=== PATIENT | male | born 1955 | race Caucasian/White ===

== ENCOUNTER 2017-10-23 14:52 | Emergency (ER) | payer OTHER ==
[~2017-10-23] VITALS: Ht 172.7 cm; Wt 98.9 kg
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
--- NOTE | 2017-10-23 15:10 | NUR ---
DR MULTANI AT BEDSIDE FOR EVAL.
--- NOTE | 2017-10-23 16:33 | NUR ---
Patient discharged to home in stable condition. Written and verbal after care instructions given. Patient verbalizes understanding of instruction.
[2017-10-23 16:34] VITALS: BP 130/68
== END 2017-10-23 16:36 | disposition home or self-care (01) ==
LOC: ER 14:54
DX: S20.212A Contusion of left front wall of thorax, initial encounter (principal); S20.211A Contusion of right front wall of thorax, initial encounter; F17.200 Nicotine dependence, unspecified, uncomplicated; V49.49XA Driver injured in collision with other motor vehicles in traffic accident, initial encounter; Y93.89 Activity, other specified; Y92.413 State road as the place of occurrence of the external cause; Y99.8 Other external cause status
CPT/HCPCS: 71045-TC; A4606; Z7610

== ENCOUNTER 2017-10-31 21:34 | Emergency (ER) | payer OTHER ==
[~2017-10-31] VITALS: Ht 172.7 cm; Wt 88.9 kg
[2017-10-31 22:13] VITALS: BP 151/91
== END 2017-10-31 23:31 | disposition home or self-care (01) ==
LOC: ER 21:36
DX: J06.9 Acute upper respiratory infection, unspecified (principal); F17.200 Nicotine dependence, unspecified, uncomplicated
CPT/HCPCS: A4606; Z7610

== ENCOUNTER 2018-11-25 01:23 | Inpatient (IN) | payer OTHER ==
[~2018-11-25] VITALS: Ht 172.7 cm; Wt 95.7 kg
--- NOTE | 2018-11-25 01:43 | NUR ---
[id number] FROM HOME C/O CP 9/10 MIDSTERNAL NONRADIATING WITH SOB AT 0030 WHILE WALKING OUTSIDE FOR FRESH AIR. PER EMS, 1 NITRO AND 162 ASA GIVEN TECHNOLOGY ADMINISTRATOR. PT DENIES SOB, CP, N/V AT TIME OF ARRIVAL STATING PAIN LEVEL 0/10. PT IS AAOX4. SKIN WNL. NO S/S OF ACUTE DISTRES NOTED. RR EVEN AND UNLABORED. PT PLACED ON TANK CAR REPAIRER AND POX. NSR RYTHM NOTED ON TANK CAR REPAIRER WITH PVC'S. PT SAFETY AND COMFORT MEASURES IN PLACE. MD BEDSIDE FOR EVAL. SIGNIFICANT OTHER BEDSIDE.
[2018-11-25 01:54] LABS: BASOPHILS # (AUTO) 0.1 /CMM (0.0-0.2); EOSINOPHILS % (AUTO) 2.5 % (0.0-6.0); HEMATOCRIT 44 % (39-51); HEMOGLOBIN 14.7 g/dL (13.5-17.5); LYMPHOCYTES # (AUTO) 4.2 /CMM (0.8-4.8); LYMPHOCYTES % (AUTO) 36.6 % (20.0-44.0); MEAN CORPUSCULAR HGB CONC 33 g/dl (31.0-36.0); MEAN CORPUSCULAR VOLUME 91 fL (80-96); MONOCYTES # (AUTO) 1.1 /CMM (0.1-1.30); MONOCYTES % (AUTO) 9.3 % (2.0-12.0); NEUTROPHILS # (AUTO) 5.8 /CMM (1.8-8.9); NEUTROPHILS % (AUTO) 50.6 % (43.0-81.0); PLATELET COUNT (AUTO) 346 /CMM (150-450); RED BLOOD CELL COUNT(AUTO) 4.85 MIL/uL (4.5-6.0); WHITE BLOOD COUNT (AUTO) 11.5 K/uL (4.3-11.0)
[2018-11-25 02:03] LABS: CALCIUM, SERUM 9.1 mg/dL (8.5-10.1); CARBON DIOXIDE 22 mmol/L (21-32); CHLORIDE 107 mmol/L (98-107); CREATININE 1.2 mg/dL (0.6-1.3); GLUCOSE 154 mg/dL (74-106); POTASSIUM 3.7 mmol/L (3.5-5.1); SODIUM SERUM 145 mmol/L (136-145); UREA NITROGEN, BLOOD 22 mg/dL (7-18)
--- NOTE | 2018-11-25 02:10 | NUR ---
PT RESTING COMFORTABLY IN BED. VITAL SIGNS STABLE. WILL CONTINUE TO MONITOR
[2018-11-25 02:16] LABS: ALANINE AMINOTRANSFERASE 46 U/L (12-78); ALBUMIN 3.5 g/dL (3.4-5.0); ALKALINE PHOSPHATASE 94 U/L (46-116); ASPARTATE AMINOTRANSFERASE 18 U/L (15-37); B-TYPE NATRIURETIC PEPTIDE 72 PG/ML (0-125); BILIRUBIN,DIRECT 0.1 mg/dL (0.0-0.2); BILIRUBIN,TOTAL 0.2 mg/dL (0.2-1.0); TOTAL PROTEIN, SERUM 7.3 g/dL (6.4-8.2)
--- NOTE | 2018-11-25 03:31 | NUR ---
GAVE REPORT TO BRYAN ANDREW FOR BETO
[2018-11-25] MEDS ORDERED: Z GUARD REMEDY 2 OZ OINT TP PRN (04:30)
[2018-11-25] MEDS ORDERED: ASPIRIN 81 MG TAB.CHEW PO ONE (04:30)
[2018-11-25] MEDS ORDERED: MAG HYDROX/AL HYDROX/SIMETH 30 ML UDC PO PRN (04:30)
[2018-11-25] MEDS ORDERED: MAGNESIUM HYDROXIDE 30 ML UDC PO PRN (04:30)
[2018-11-25] MEDS ORDERED: ZOLPIDEM TARTRATE 5 MG TABLET PO PRN (04:30)
[2018-11-25] MEDS ORDERED: ACETAMINOPHEN 325 MG TABLET PO PRN (04:30)
[2018-11-25] MEDS ORDERED: ONDANSETRON HCL/PF 4 MG/2 ML VIAL IVP PRN (04:30)
[2018-11-25] MEDS ORDERED: HYDROCODONE/APAP 5/325MG 1 EACH TABLET PO PRN (04:30)
[2018-11-25] MEDS ORDERED: ASPIRIN 81 MG TAB.CHEW ONE (04:39)
[2018-11-25 04:45] VITALS: BP 131/82
--- NOTE | 2018-11-25 04:49 | NUR ---
APPLICATION OPERATIONS ENGINEER NOTES RECEIVED PATIENT VIA GURNEY FROM ER IN STABLE CONDITION. NO DISTRESS NOTED. PATIENT A/O X4. NO C/O CHEST PAIN OR DISCOMFORT. VITALS WNL. PERIPHERAL LINE IN RAC #18 GAUGE INTACT AND PATENT. ENCOURAGED USE OF CALL LIGHT FOR ASSISTANCE AND VERBALIZED GOOD UNDERSTANDING. ROOM FREE OF CLUTTER AND BELONGINGS KPET NEAR BEDSIDE. WILL CONTINUE TO MONITOR.
--- NOTE | 2018-11-25 04:51 | NUR ---
PT TRANSFERRED PER [facility] PROTOC[facility]
[2018-11-25] MEDS: IV NS 0.9% 1,000 ML IV SCH (05:06)
--- NOTE | 2018-11-25 06:29 | NUR ---
PRODUCT TESTER FIBERGLASS NOTES PATIENT ASLEEP IN BED WITH NO DISTRESS NOTED. PERIPHERAL LINE INTACT AND PATENT. NO C/O PAIN OR DISCOMFORT. BED IN LOW LOCK SETTING. ROOM FREE OF CLUTTER AND ALL BELONGINGS KEPT NEAR BEDSIDE. WILL ENDORSE TO ONCOMING SHIFT.
--- NOTE | 2018-11-25 07:30 | NUR ---
PT RECEIVED RESTING COMFORTABLY IN BED WITH EYES CLOSED. NO S/S/ OR C/O PAIN OR DISTRESS NOTED. SIDE RAILS UP X2, CALL LIGHT LEFT WITHIN REACH. WILL CONTINUE PLAN OF CARE.
[2018-11-25 08:06] VITALS: BP 143/66
[2018-11-25] MEDS ORDERED: ALBU18HF2 INH (10:35)
[2018-11-25] MEDS: METOPROLOL TARTRATE 25 MG TABLET PO SCH ×2 (13:49→22:37)
[2018-11-25] MEDS: ENOXAPARIN SODIUM 100 MG/ML DISP.SYRIN SQ SCH (13:54)
[2018-11-25 16:00] VITALS: BP 132/87
--- NOTE | 2018-11-25 19:21 | NUR ---
CHANGE OF SHIFT REPORT PT RESTING COMFORTABLY IN BED. NO S/S OR C/O PAIN OR DISTRESS NOTED. SIDE RAILS UP X2, CALL LIGHT LEFT WITHIN REACH. PT KEPT CLEAN, DRY, AND COMFORTABLE. NO SIGNIFICANT CHANGES SINCE ADMISSION. WILL GIVE REPORT TO ROSSI ANDREW.
--- NOTE | 2018-11-25 19:50 | NUR ---
GENERATOR WORKER NOTES RECEIVED AWAKE IN BED, ALERT ORIENTED X 4, NO SIGNS OF ACUTE CARDIAC OR RESPIRATORY DISTRESS NOTED, DENIES ANY PAIN, SAFETY MEASURES IN PLACED, IV SITE INTACT AND PATENT, WILL MONITOR ACCORDINGLY.
[2018-11-25 20:00] VITALS: BP 125/80
[2018-11-25] MEDS: ATORVASTATIN 40 MG TABLET PO SCH (22:35)
[2018-11-26] MEDS: ENOXAPARIN SODIUM 100 MG/ML DISP.SYRIN SQ SCH ×2 (02:15→13:54)
[2018-11-26 04:00] VITALS: BP 119/77
[2018-11-26] MEDS: IV NS 0.9% 1,000 ML IV SCH (05:50)
--- NOTE | 2018-11-26 07:35 | NUR ---
RETAIL CUSTOMER SERVICE SPECIALIST OPENING NOTE RECEIVED PT IN BED, ALERT AND ORIENTED X4. DENIES CHEST PAIN, SOB, N/V. BREATHING IS EVEN AND UNLABORED ON ROOM AIR. 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 RIGHT AC #18G IV IS INFUSING NS @ 75ML/HR WITHOUT REDNESS OR SWELLING. PER DIABETOLOGIST NOTE DR. CASTRO, PT IS FOR TRANSFER TO OUTSIDE FACILITY FOR CARDIAC CATH. PT IS REQUESTING SHOWER, INFORMED THE PT THAT A DOCTOR ORDER IS REQUIRED FIRST AND THE NURSE WILL FOLLOW UP. PT VERBALIZED UNDERSTANDING. BED IS LOCKED AND IN LOWEST POSITION, SIDE RAILS UPX2, CALL LIGHT AND POSSESSION WITHIN REACH.
[2018-11-26 08:00] VITALS: BP 134/79
[2018-11-26 08:10] LABS: CALCIUM, SERUM 8.7 mg/dL (8.5-10.1); CREATININE 0.9 mg/dL (0.6-1.3); MAGNESIUM 1.9 mg/dL (1.8-2.4); PHOSPHORUS 3.3 mg/dL (2.5-4.9); POTASSIUM 3.9 mmol/L (3.5-5.1)
[2018-11-26 08:21] LABS: BASOPHILS # (AUTO) 0.1 /CMM (0.0-0.2); BASOPHILS % (AUTO) 0.7 % (0.0-2.0); EOSINOPHILS % (AUTO) 2.5 % (0.0-6.0); HEMATOCRIT 45 % (39-51); LYMPHOCYTES # (AUTO) 3.2 /CMM (0.8-4.8); LYMPHOCYTES % (AUTO) 33.7 % (20.0-44.0); MEAN CORPUSCULAR HGB CONC 34 g/dl (31.0-36.0); MEAN CORPUSCULAR VOLUME 91 fL (80-96); MONOCYTES # (AUTO) 0.8 /CMM (0.1-1.30); MONOCYTES % (AUTO) 8.1 % (2.0-12.0); NEUTROPHILS # (AUTO) 5.3 /CMM (1.8-8.9); PLATELET COUNT (AUTO) 354 /CMM (150-450); RED BLOOD CELL COUNT(AUTO) 4.88 MIL/uL (4.5-6.0); WHITE BLOOD COUNT (AUTO) 9.6 K/uL (4.3-11.0)
[2018-11-26] MEDS ORDERED: IV NS 0.9% 1,000 ML IV PRN (08:38)
[2018-11-26] MEDS: ASPIRIN EC 325 MG TABLET.DR PO SCH (08:39)
[2018-11-26] MEDS: METOPROLOL TARTRATE 25 MG TABLET PO SCH ×2 (08:40→21:52)
--- NOTE | 2018-11-26 11:45 | NUR ---
GEOSPATIAL APPLICATIONS DEVELOPER NOTE CALLED CM AND LEFT MESSAGE WITH CM REGARDING PT JUN REQUEST TO SPEAK WITH BIOMEDICAL ELECTRONICS TECHNICIAN. PER CM SHE WILL INFORM HERBER ONCE HE IS BACK IN THE OFFICE.
[2018-11-26 16:00] VITALS: BP 139/84
--- NOTE | 2018-11-26 18:28 | NUR ---
MD UROLOGIST CLOSING NOTE PT IN BED, ALERT AND ORIENTED X4. DENIES CHEST PAIN, SOB, N/V. BREATHING IS EVEN AND UNLABORED ON ROOM AIR. PT IS ON DIAL BUFFER, SINUS RHYTHM WITH 1ST DEGREE AV BLOCK. AT THIS TIME. NO EPISODE OF CHEST PAIN FOR THE DURATION OF THE SHIFT. RIGHT AC #18G IV IS SALINE LOCKED WITHOUT REDNESS OR SWELLING. ADLS PROVIDED. PT IS PENDING TRANSFER TO OUTSIDE FACILITY FOR CARDIAC CATH. BED IS LOCKED AND IN LOWEST POSITION, SIDE RAILS UPX2, CALL LIGHT AND POSSESSION WITHIN REACH. WILL ENDORSE TO MODEL BUILDER DISPLAY NURSE FOR CONTINUITY OF CARE.
[2018-11-26] MEDS ORDERED: NITROGLYCERIN 0.4 MG/TAB BOTTLE SL PRN (19:30)
[2018-11-26 20:00] VITALS: BP 173/100
--- NOTE | 2018-11-26 20:00 | NUR ---
COMMUTATOR UNDERCUTTER NOTE: PATIENT JUST GOT BACK FROM SHOWER AND BACK TO BED AND COMPLAINS ABOUT CHEST PAIN, NO RADIATING. CALL FIRE PROTECTION FABRICATOR MD TO GET ORDERS FOR NITRO. RECEIVED ORDERS FOR NITRO PATCH AND NITRO SL PRN. ORDER NOTED AND VERIFIED. BREATHING EVEN AND UNLABORED, NO SOB NOTED. IV TO LEFT HAND IN PLACE. PATIENT RESTING IN BED AND CHEST PAIN RESOLVING. BED LOCKED AND IN LOWEST POSITION, CALL LIGHT IN REACH. WILL CONTINUE TO MONITOR.
[2018-11-26] MEDS: NITROGLYCERIN PACKET 1 GM PACKET TOP SCH ×2 (20:29→23:58)
--- NOTE | 2018-11-26 20:30 | NUR ---
PRODUCTION ARTIST NOTE: PATIENT CHEST PAIN RESOLVING AT THIS TIME. NITRO PATCH GIVEN TO LEFT CHEST WALL. BP 173/100, HR 70, WILL CONTINUE TO MONITOR.
[2018-11-26] MEDS: ATORVASTATIN 40 MG TABLET PO SCH (21:52)
--- NOTE | 2018-11-26 22:00 | NUR ---
OIL INSPECTOR NOTE: PATIENT BLOOD PRESSURE DECREASED WITH RESOLVED CHEST PAIN, BP 139/93, HR 66. BLOOD PRESSURE MEDICATION GIVEN ORDERED. WILL CONTINUE TO MONITOR
[2018-11-27] VITALS: BP 123/71
[2018-11-27 01:13] VITALS: BP 173/100
[2018-11-27] MEDS: ENOXAPARIN SODIUM 100 MG/ML DISP.SYRIN SQ SCH ×2 (02:03→14:10)
[2018-11-27 04:00] VITALS: BP 124/82
[2018-11-27] MEDS: NITROGLYCERIN PACKET 1 GM PACKET TOP SCH ×3 (06:14→17:19)
--- NOTE | 2018-11-27 06:25 | NUR ---
RECEPTIONIST/TELEPHONE OPERATOR NOTE: PATIENT RESTING IN BED, NO ACUTE DISTRESS NOTED. BREATHING EVEN AND UNLABORED, NO SOB NOTED. IV TO LEFT HAND IN PLACE. PATIENT DENIES CHEST PAIN AT THIS TIME. BED LOCKED AND IN LOWEST POSITION, CALL LIGHT IN REACH. WILL ENDORSE TO DAY NURSE TO CONTINUE WITH PLAN OF CARE.
--- NOTE | 2018-11-27 07:31 | NUR ---
FIELD AGRONOMIST OPENING NOTES RECEIVED PT AWAKE IN BED IN NO ACUTE SIGNS OF DISTRESS. A/O X4. ABLE TO MAKE NEEDS KNOWN, DENIES PAIN OR ANY DISCOMFORTS AT THIS TIME. ON ROOM AIR, BREATHING EVEN AND UNLABORED. TELE-MONITORING SHOWS SR WITH HR OF 66 AT THIS TIME, NO C/O CARDIAC DISTRESS VOICED. IV ACCESS ON THE RAC G#18 INTACT AND PATENT. SAFETY MEASURES IN PLACE. BED IN LOWEST LOCKED POSITION WITH SIDE-RAILS UP X2. CALL LIGHT WITHIN REACH. WILL CONTINUE TO MONITOR.
[2018-11-27 08:34] VITALS: BP 121/71
[2018-11-27] MEDS: ASPIRIN EC 325 MG TABLET.DR PO SCH (08:53)
[2018-11-27] MEDS: METOPROLOL TARTRATE 25 MG TABLET PO SCH ×2 (08:53→21:22)
[2018-11-27 09:12] LABS: BASOPHILS # (AUTO) 0.1 /CMM (0.0-0.2); BASOPHILS % (AUTO) 0.8 % (0.0-2.0); EOSINOPHILS % (AUTO) 1.5 % (0.0-6.0); HEMATOCRIT 44 % (39-51); HEMOGLOBIN 14.7 g/dL (13.5-17.5); LYMPHOCYTES # (AUTO) 2.4 /CMM (0.8-4.8); LYMPHOCYTES % (AUTO) 23.9 % (20.0-44.0); MEAN CORPUSCULAR HGB CONC 34 g/dl (31.0-36.0); MEAN CORPUSCULAR VOLUME 91 fL (80-96); MONOCYTES # (AUTO) 0.5 /CMM (0.1-1.30); MONOCYTES % (AUTO) 5.2 % (2.0-12.0); NEUTROPHILS % (AUTO) 68.6 % (43.0-81.0); PLATELET COUNT (AUTO) 342 /CMM (150-450); RED BLOOD CELL COUNT(AUTO) 4.78 MIL/uL (4.5-6.0); WHITE BLOOD COUNT (AUTO) 10.2 K/uL (4.3-11.0)
[2018-11-27 09:27] LABS: CALCIUM, SERUM 8.7 mg/dL (8.5-10.1); CREATININE 1.1 mg/dL (0.6-1.3); MAGNESIUM 1.8 mg/dL (1.8-2.4); PHOSPHORUS 3.2 mg/dL (2.5-4.9); POTASSIUM 3.4 mmol/L (3.5-5.1)
--- NOTE | 2018-11-27 11:06 | NUR ---
RN NOTES PT SEEN BY SPECIAL LOAN OFFICER WITH RECOMMENDATION TO DO SWALLOW EVALUATION. Addendum: 11/27/18 at 1108 by LAKIA MURILLO RN ERROR: WRONG NOTES. PROGRESS NOTED IS FOR ANOTHER PT.
[2018-11-27] MEDS ORDERED: POTASSIUM CHLORIDE 20 MEQ TAB.PRT.SR PO SCH (12:30)
[2018-11-27 16:00] VITALS: BP 110/73
--- NOTE | 2018-11-27 17:34 | NUR ---
RN NOTES PATIENT REFUSED IVF OF NS @ 75ML/HR ORDERED. PT DRINKING FLUIDS WELL. WILL CONTINUE TO MONITOR
[2018-11-27] MEDS ORDERED: CLOPIDOGREL BISULFATE 75 MG TABLET PO ONE (18:30)
--- NOTE | 2018-11-27 18:45 | NUR ---
MS RN CLOSING NOTES PT AWAKE AND RESTING IN BED WITH FAMILY AT BEDSIDE. A/O X4. ABLE TO MAKE NEEDS AND CONCERNS KNOWN. AMBULATORY. ON ROOM AIR, BREATHING EVEN AND UNLABORED. IV ACCESS ON RAC G#18 INTACT AND PATENT, FLUSHES WELL. SAFETY MEASURES KEPT IN PLACE. BED IN LOWEST LOCKED POSITION WITH SIDE-RAILS UP X2. CALL LIGHT WITHIN REACH. ALL NEEDS AND CARE ATTENDED WELL. WILL ENDORSE TO TERMINAL GAUGER SUPERVISOR NURSE FOR BETO.
--- NOTE | 2018-11-27 19:00 | NUR ---
LORRIE MS NOTES RECEIVED PATIENT IN BED AWAKE ALERT AND ORIENTED X 4, RESPIRATIONS EVEN AND UNLABORED WITH EQUAL RISE AND FALL OF CHEST, DENIES ANY PAIN OR DISCOMFORT AT THIS TIME, ON TELE OBSERVATION SR 64, NO DISTRESS PRESENT AT THIS TIME, IV SITE TO RIGHT AC #18G SL INTACT AND PATENT, NO REDNESS, NO INFILTRATION PRESENT, SAFETY PRECAUTIONS IN PLACE, LOW BED AND LOCKED CALL LIGHT KEPT WITHIN REACH, ALL NEEDS ATTENDED AT THIS TIME, REMAINS COMFORTABLE, WILL CONTINUE TO MONITOR AN ATTEND TO NEEDS. Addendum: 11/28/18 at 0109 by KIRBY HILL RN LORRIE MS OPENING NOTES
[2018-11-27 20:00] VITALS: BP 128/80
--- NOTE | 2018-11-27 20:30 | NUR ---
RN MS NOTES DR. ROBLEDO MADE AWARE OF TROPONIN LEVEL OF 0.161 , NO NEW ORDERS AT THIS TIME. NOTED TRENDING DOWN FROM 0.361
[2018-11-27] MEDS: ATORVASTATIN 40 MG TABLET PO SCH (21:22)
[2018-11-28] VITALS: BP 128/76
[2018-11-28] MEDS: NITROGLYCERIN PACKET 1 GM PACKET TOP SCH ×4 (00:31→17:12)
[2018-11-28] MEDS: ENOXAPARIN SODIUM 100 MG/ML DISP.SYRIN SQ SCH ×2 (01:12→13:19)
[2018-11-28 04:00] VITALS: BP 134/76
--- NOTE | 2018-11-28 06:39 | NUR ---
RN MS NOTES PATIENT IN BED AWAKE ALERT AND ORIENTED X 4, RESPIRATIONS EVEN AND UNLABORED WITH EQUAL RISE AND FALL OF CHEST, DENIES ANY PAIN OR DISCOMFORT AT THIS TIME, ON TELE OBSERVATION SR 63, NO DISTRESS PRESENT AT THIS TIME, IV SITE TO RIGHT AC #18G SL INTACT AND PATENT, NO REDNESS, NO INFILTRATION PRESENT, SAFETY PRECAUTIONS IN PLACE, LOW BED AND LOCKED CALL LIGHT KEPT WITHIN REACH, ALL NEEDS ATTENDED AT THIS TIME, REMAINS COMFORTABLE, WILL CONTINUE TO MONITOR AN ATTEND TO NEEDS AND ENDORSE TO NEXT SHIFT, PATIENT DID NOT COMPLAIN OF CHEST PAIN OR HAVE EPISODE THROUGHOUT SHIFT.
[2018-11-28 06:51] LABS: CALCIUM, SERUM 8.9 mg/dL (8.5-10.1); CREATININE 0.9 mg/dL (0.6-1.3); POTASSIUM 3.9 mmol/L (3.5-5.1)
--- NOTE | 2018-11-28 07:30 | NUR ---
MS/RN - Assessment Patient alert and oriented x 4, no complaints overnight, denies chest pain, stable on room air. Saline lock on the RAC with no signs of infiltration. Patient cleared for transfer to another acute hospital, still awaiting for bed availability per CM. Will continue with current medical management.
[2018-11-28 08:00] VITALS: BP 137/94
[2018-11-28] MEDS: ASPIRIN EC 325 MG TABLET.DR PO SCH (08:45)
[2018-11-28] MEDS: METOPROLOL TARTRATE 25 MG TABLET PO SCH ×2 (08:46→22:43)
[2018-11-28] MEDS ORDERED: CLOPIDOGREL BISULFATE 75 MG TABLET PO SCH (09:00)
[2018-11-28 16:00] VITALS: BP 122/73
[2018-11-28] MEDS ORDERED: ENOX100D SQ (16:00)
[2018-11-28] MEDS ORDERED: METO25TA20 PO (16:00)
[2018-11-28] MEDS ORDERED: CLOP75TA15 PO (16:00)
[2018-11-28] MEDS ORDERED: ASPI-869 PO (16:00)
[2018-11-28] MEDS ORDERED: NITR1OIN2 TOP (16:00)
[2018-11-28] MEDS ORDERED: ATOR40TA PO (16:00)
--- NOTE | 2018-11-28 16:15 | NUR ---
MS/RN - Notes Per CM, patient accepted at [facility], will give bed once hard copy of auth received from [facility]. CM arranged ambulance on will call. Trip ID: [id number] ([phone]). Patient and family updated.
--- NOTE | 2018-11-28 18:04 | NUR ---
MS/RN - End of shift summary No new events seen. Patient resting comfortably, denies chest pain, remain afebrile, stable on room air, saline lock on the RAC is patent, intact, with no signs of infiltration. Still awaiting for bed availability at [facility]. All transfer and discharge papers signed by the patient. Will endorse to the night nurse accordingly.
--- NOTE | 2018-11-28 18:59 | NUR ---
MS/RN - Notes Received a call from [facility] Transfer [facility] (Livia), patient assigned to 315, call for report at [phone]. Please call transfer center [phone] (Luda or Aaliyah) for ambulance ETA. Will endorse to night RN accordingly.
--- NOTE | 2018-11-28 19:43 | NUR ---
RN OPENING NOTES RECEIVED REPORT FROM PO DREW. Pt IS BEING DISCHARGED TONIGHT TO [facility]; ALL EXIT CARE DONE, PRINTED, & SIGNED BY Pt WITH PO ANDREW WITNESS. Pt IS A/OX4, VERBAL, ABLE TO MAKE NEEDS KNOWN. NO S/S OF ACUTE DISTRESS OR SOB NOTED. ON TELE OBSERVATION PER FAMILY REQUEST OF BEING CONCERNED FOR Pt. IV ACCESS ON RAC #18G, SL. PER REPORT FROM PO ANDREW, AMBULANCE IS ON A WILL CALL; TRIP # [id number]. NEED TO CALL TO SCHEDULE COPYING MACHINE MECHANIC FOR TONIGHT. SAFETY MEASURES IN PLACE. WILL CONTINUE TO MONITOR Pt's CONDITION AND SAFETY UNTIL Pt IS DISCHARGED.
[2018-11-28 20:00] VITALS: BP 126/84
--- NOTE | 2018-11-28 20:25 | NUR ---
RN NOTES CURRENTLY CALLING THE AMBULANCE TO SCHEDULE REHABILITATION NURSE FOR Pt. CURRENTLY HAVE BEEN ON HOLD FOR THE PAST 45MIN. STILL ON HOLD.
--- NOTE | 2018-11-28 21:55 | NUR ---
RN NOTES CONTINUED BEING ON HOLD AND BEING TRANSFERRED TO DIFFERENT DEPARTMENTS. WAS UNABLE TO GET A HOLD OF A WIRE DRAWING DIE MAKER TO SPEAK TO IN REGARDS TO THE AMBULANCE WILL CALL CROP QUANTITATIVE GENETICIST. EHS MANAGERMICH HUNG CALLED [facility] TO SCHEDULE A CROP QUANTITATIVE GENETICIST FOR THE Pt. WAS ABLE TO SCHEDULE A CROP QUANTITATIVE GENETICIST ETA @[phone]. TRIP #[id number].
--- NOTE | 2018-11-28 21:57 | NUR ---
RN NOTES CALLED [facility] TO INFORM THEM OF THE AMBULANCE ETA. INFORMED THEM THAT THE RESTAURANT LEAD ETA HERE AT [facility] WILL BE AT [phone].
--- NOTE | 2018-11-28 22:07 | NUR ---
RN NOTES CALLED [facility] TO GIVE REPORT. CLAIM ATTORNEY SAID THE RN OLLIE IS BUSY AT THE MOMENT TO GET REPORT AND WILL CALL ME BACK. GAVE THEM 3WEST UNIT CALL BACK NUMBER. WAITING FOR THE RN TO CALL BACK.
--- NOTE | 2018-11-28 22:39 | NUR ---
RN NOTES RECEIVED CALL FROM [facility] STATING THAT ETA RETAIL DIRECTOR WILL NOW BE BETWEEN [phone] DUE TO DELAY. WILL INFORM Pt.
[2018-11-28] MEDS: ATORVASTATIN 40 MG TABLET PO SCH (22:42)
[2018-11-29] VITALS: BP 123/87
[2018-11-29] MEDS: NITROGLYCERIN PACKET 1 GM PACKET TOP SCH
--- NOTE | 2018-11-29 00:08 | NUR ---
RN NOTES SPOKE WITH LORRIE LEVIN FROM [facility] ([phone]) TO GIVE REPORT. STILL WAITING ON AMBULANCE APPEALS NURSE. WILL CALL THEM BACK ONCE AMBULANCE HAVE ARRIVED TO APPEALS NURSE Pt FOR TRANSPORT.
[2018-11-29] MEDS: ENOXAPARIN SODIUM 100 MG/ML DISP.SYRIN SQ SCH (01:30)
--- NOTE | 2018-11-29 01:55 | NUR ---
ENVIRONMENTAL SPECIALIST NOTES AMBULNZ BEHAVIOR MANAGEMENT SPECIALIST HAS ARRIVED. REPORT GIVEN TO EMT. Pt REMAINS IN STABLE CONDITION. VS STABLE. NO S/S OF ACUTE DISTRESS OR SOB NOTED. Pt IS A/OX4, VERBAL, ABLE TO MAKE NEEDS KNOWN. Pt BEING SAFELY TRANSFERRED TO AMBULANCE [facility] BED PER ACLS PROTOCOL. ALL BELONGINGS WITH Pt AND FAMILY. ALREADY CALLED RN AT [facility] FOR REPORT, AND INFORMED HER OF Pt BEING PICKED UP NOW.
--- NOTE | 2018-11-29 01:55 | NUR ---
RN NOTES AMBULNZ FORESTER AIDE HAS ARRIVED. REPORT GIVEN TO EMT. Pt REMAINS IN STABLE CONDITION. VS STABLE. NO S/S OF ACUTE DISTRESS OR SOB NOTED. Pt IS A/OX4, VERBAL, ABLE TO MAKE NEEDS KNOWN. Pt BEING SAFELY TRANSFERRED TO AMBULANCE [facility] PER ACLS PROTOCOL. ALL BELONGINGS WITH Pt AND FAMILY. ALREADY CALLED RN AT [facility] FOR REPORT, AND INFORMED HER OF Pt BEING PICKED UP NOW.
== END 2018-11-29 01:50 | disposition short-term general hospital (02) | DRG 190 ==
LOC: ER 01:24 → TELE 04:27 → MED 11-27 08:47
PROVIDERS: ADMIT Nurse Practitioner Acute Care; ATTEND Nurse Practitioner Acute Care
DX: I21.4 Non-ST elevation (NSTEMI) myocardial infarction (principal); E11.65 Type 2 diabetes mellitus with hyperglycemia; I25.2 Old myocardial infarction; I10 Essential (primary) hypertension; F17.210 Nicotine dependence, cigarettes, uncomplicated; E78.5 Hyperlipidemia, unspecified; I25.10 Atherosclerotic heart disease of native coronary artery without angina pectoris; Z82.49 Family history of ischemic heart disease and other diseases of the circulatory system; Z87.01 Personal history of pneumonia (recurrent)
CPT/HCPCS: 36415; 71045-TC; 80048-TC; 80061-TC; 80076-TC; 83735-TC; 83880; 84100-TC; 84484-TC; 85025-TC; 85730-TC; 87081-TC; 93307-TC; G0378; J1650; J7030